=== PATIENT | male | born 1990 | race Caucasian/White ===

== ENCOUNTER 2024-10-04 06:50 | Emergency (ER) | payer BC, SELFPAY ==
[2024-10-04 06:59] VITALS: BP 151/91; PULSE 96; TEMP 37.4; O2SAT 97; BMI 18.2
--- NOTE | 2024-10-04 07:13 | XR_ITS ---
The [address] [address] Patient Name: LUIZA MORALES MRN: [id number] date: 1990 Sex: M Assigned Patient Location: ER Current Patient Location: ER Accession/Order Number: [id number] Exam Date: 10/04/2024 07:42 Report Date: 10/04/2024 07:56 At the request of: ERIN GEIGER Procedure: XR chest 2V EXAM: XR chest 2V HISTORY: cough COMPARISON: None. TECHNIQUE: PA and lateral views of the chest performed. FINDINGS: The trachea is midline. The heart size is normal. The cardiomediastinal silhouette and hilar shadows are normal. There is no consolidation, pleural effusion or pulmonary vascular congestion. There is no pneumothorax or acute osseous abnormality. XR/XR chest 2V IMPRESSION: There is no acute cardiopulmonary process. Electronically authenticated by: ANDREW VILLA Date: 10/04/2024 07:56
--- NOTE | 2024-10-04 07:16 | ED_ITS ---
HPI - URI/Sore Throat General Chief Complaint: Upper Respiratory Infection Stated Complaint: URI SYMPTOMS, GENERAL WEAKNESS Time Seen by Provider: 10/04/24 07:05 Source: patient Limitations: no limitations History of Present Illness HPI Narrative: Patient presents ED complaining of not feeling well. Patient states he has been feeling bad for 3 weeks. He said he maybe started to get a little bit better and then its gotten progressively worse again. He said he has upper respiratory symptoms like cough which is giving him a terrible headache and bodyaches and fevers and chills. Patient states he has been coughing up some mucus. Mert montejo's states that he was disoriented this morning and tried to leave the house without a shirt on and she just felt like he was not acting right because he has been so sick. She decided to bring him into the emergency room. She said she also was not feeling well recently but not as bad as him. She said they have tried everything [id number] but it has not been helping the cough body aches fevers or chills. Patient is alert and orient and resting in the bed. He is mildly tachycardic with a low-grade fever. Related Data Previous Rx's ?Medication ?Instructions ?Recorded albuterol sulfate 90 mcg/actuation 1 inh inhalation Q6H PRN shortness 10/04/24 aerosol inhaler of breath or wheezing #8.5 grams amoxicillin 875 mg-potassium 1 tab PO BID #14 tabs 10/04/24 clavulanate 125 mg tablet hydrocodone-homatropine 5 mg-1.5 5 ml PO Q6H PRN cough #60 mL 10/04/24 mg/5 mL (5 mL) oral syrup (Hycodan) methylprednisolone 4 mg tablets in 4 mg PO DAILY #21 ea 10/04/24 a dose pack (Medrol (David)) Allergies Allergy/AdvReac Type Severity Reaction Status Date / Time No Known Drug Allergies Allergy Verified 10/04/24 06:59 Review of Systems ROS Status of ROS 10 or more systems reviewed and unremark able except as noted in history and below PFSH PFSH Social History Little interest or pleasure in doing things: not at all Feeling down, depressed, or hopeless: not at all Exam Narrative Exam Narrative: Time Seen: [] Vital Signs: [Per nurse's notes.] General: [Alert] Skin: [Warm, dry, no rash.] Head: [Normocephalic, atraumatic.] Neck: [Supple, trachea midline.] Eye: [Pupils are equal, round and reactive to light, extraocular movements are intact, normal conjunctiva.] Ears, nose, mouth and throat: oral mucosa moist. Cardiovascular: [Regular rate and rhythm, no murmur.] Respiratory: [Mild wheezing and rhonchi bilateral bases worse on the right lower lobe Chest wall: [No tenderness, no deformity.] Gastrointestinal: [Soft, nontender, non distended, normal bowel sounds.] MSK: 5 out of 5 muscle strength x 4 extremities no calf pain or edema Lymphatics: [No lymphadenopathy.] Psychiatric: [Cooperative, appropriate mood & affect.] Neurological: [Alert and oriented to person, place, time, and situation, no focal neurological deficit observed.] Constitutional Vital Signs, click to edit/add: Last Vital Signs Temp 99.3 F 10/04/24 06:59 Pulse 96 H 10/04/24 06:59 Resp 19 10/04/24 06:59 BP 151/91 H 10/04/24 06:59 Pulse Ox 96 10/04/24 07:33 O2 Del Method Room Air 10/04/24 07:33 Course Vital Signs Vital signs: Vital Signs Temperature 99.3 F 10/04/24 06:59 Pulse Rate 96 H 10/04/24 06:59 Respiratory Rate 19 10/04/24 06:59 Blood Pressure 151/91 H 10/04/24 06:59 Pulse Oximetry 97 10/04/24 06:59 Temperature 99.3 F 10/04/24 06:59 Pulse Rate 96 H 10/04/24 06:59 Respiratory Rate 19 10/04/24 06:59 Blood Pressure 151/91 H 10/04/24 06:59 Pulse Oximetry 96 10/04/24 07:33 Oxygen Delivery Method Room Air 10/04/24 07:33 MDM - URI/Sore Throat MDM Narrative Medical decision making narrative: Patient's checks x-ray shows viral inflammation. Patient has been sick for 3 weeks also complaining of facial pressure and headache. Possibly sinusitis. Patient had negative test for flu COVID and RSV. Patient will be sent home with antibiotics, cough medication steroids and an albuterol inhaler for the wheezing. Patient was written a slip off work. Return to ED if worsening symptoms otherwise follow-up with family doctor. Patient is feeling better after fluids and Toradol. Patient is stable for discharge home. Differential Diagnosis Differential diagnosis: Likely upper respiratory infection, sinusitis, viral infection, bronchitis and influenza Lab Data Attestation: I reviewed the patient's lab results. Labs: Lab Results 10/04/24 10/04/24 Range/Units 07:25 07:28 WBC 5.9 (4.0-11.0) 10^3/uL RBC 4.95 (4.70-6.10) 10^6/uL Hgb 15.1 (14.0-18.0) g/dL Hct 44.6 (42.0-54.0) % MCV 90.1 (80.0-94.0) fL MCH 30.5 (25.9-34.0) pg MCHC 33.9 (29.9-35.2) g/dL RDW 11.9 (11.0-15.0) % Plt Count 233 (150-450) 10^3/uL MPV 11.0 (9.5-13.5) fL Neut % (Auto) 82.9 H (43.0-75.0) % Lymph % (Auto) 5.9 L (20.5-60.0) % [place] % (Auto) 8.8 (1.7-12.0) % Eos % (Auto) 1.5 (0.9-7.0) % Baso % (Auto) 0.7 (0.2-2.0) % Neut # (Auto) 4.9 (1.4-6.5) 10^3/uL Lymph # (Auto) 0.4 L (1.2-3.8) 10^3/uL [place] # (Auto) 0.5 (0.3-0.8) 10^3/uL Eos # (Auto) 0.1 (0.0-0.7) 10^3/uL Baso # (Auto) 0.0 (0.0-0.1) 10^3/uL Abs Immat Gran (auto) 0.01 (0.00-0.03) 10^3/uL Imm/Tot Granulo (auto) 0.2 (0.0-0.5) % Sodium 139 (136-145) mmol/L Potassium 4.0 (3.5-5.1) mmol/L Chloride 104 (98-107) mmol/L Carbon Dioxide 27.5 (21.0-32.0) mmol/L Anion Gap 11.5 BUN 15.0 (7.0-18.0) mg/dL Creatinine 1.13 (0.70-1.30) mg/dL Est GFR ( Amer) >60 (>=60 mL/min/1.73m^2) Est GFR (Non-Af Amer) >60 (>=60 mL/min/1.73m^2) BUN/Creatinine Ratio 13.3 Glucose 103 (74-106) mg/dL Calcium 8.6 (8.5-10.1) mg/dL Total Bilirubin 1.1 H (0.2-1.0) mg/dL AST 15 (15-37) U/L ALT 33 (16-63) U/L Alkaline Phosphatase 60 (46-116) U/L Total Protein 7.4 (6.4-8.2) g/dL Albumin 3.9 (3.4-5.0) g/dL Globulin 3.5 g/dL Albumin/Globulin Ratio 1.1 Influenza Type A Ag Negative Influenza Type B Ag Negative RSV Antigen Not detected (NOT DETECTE) SARS-CoV-2 Ag (CV2AG) Negative (NEGATIVE) Imaging Data Chest x-ray: Radiologist's impression: ITS Impressions Chest X-Ray 10/04/24 07:13 IMPRESSION: There is no acute cardiopulmonary process. Electronically authenticated by: ANDREW VILLA Date: 10/04/2024 07:56 Discharge Plan Discharge Chief Complaint: Upper Respiratory Infection Clinical Impression: Upper respiratory infection, Sinusitis Patient Disposition: Home, Self-Care Time of Disposition Decision: 08:18 Condition: Good Mode of Transportation: Private Vehicle Prescriptions / Home Meds: New hydrocodone-homatropine [Hycodan] 5-1.5 mg/5 mL (5 mL) syrup 5 ml PO Q6H PRN (Reason: cough) Qty: 60 0RF amoxicillin-pot clavulanate 875-125 mg tablet 1 tab PO BID Qty: 14 0RF albuterol sulfate 90 mcg/actuation HFA aerosol inhaler 1 inh inhalation Q6H PRN (Reason: shortness of breath or wheezing) Qty: 8.5 0RF methylprednisolone [Medrol (David)] 4 mg tablets,dose pack 4 mg PO DAILY Qty: 21 0RF Rx Instructions: disp one david, use as directed Print Language: Indonesian Instructions: Sinusitis (ED), Upper Respiratory Infection (ED) Referrals: Physician,Non-Staff, MD [Primary Care Provider] - 1 week
[2024-10-04 07:33] VITALS: O2SAT 96
[2024-10-04] MEDS: 0.9 % SODIUM CHLORIDE 1,000 ML 1000 ML IV (07:40)
[2024-10-04] MEDS: KETOROLAC TROMETHAMINE 30 MG/ML VIAL IVP (07:40)
[2024-10-04 07:44] LABS: Basophils Percent Auto 0.7 % (0.2-2.0); Eosinophils Absolute Auto 0.1 10^3/uL (0.0-0.7); Eosinophils Percent Auto 1.5 % (0.9-7.0); Hematocrit 44.6 % (42.0-54.0); Hemoglobin 15.1 g/dL (14.0-18.0); Immature Granulocytes Abs Auto 0.01 10^3/uL (0.00-0.03); Immature Granulocytes Pct Auto 0.2 % (0.0-0.5); Lymphocytes Absolute Auto 0.4 10^3/uL (1.2-3.8); Lymphocytes Percent Auto 5.9 % (20.5-60.0); Mean Corpuscular HGB Conc 33.9 g/dL (29.9-35.2); Mean Corpuscular Hemoglobin 30.5 pg (25.9-34.0); Mean Corpuscular Volume 90.1 fL (80.0-94.0); Monocytes Absolute Auto 0.5 10^3/uL (0.3-0.8); Monocytes Percent Auto 8.8 % (1.7-12.0); Neutrophils Absolute Auto 4.9 10^3/uL (1.4-6.5); Neutrophils Percent Auto 82.9 % (43.0-75.0); Platelet Count 233 10^3/uL (150-450); Red Blood Count 4.95 10^6/uL (4.70-6.10); Red Cell Distribution Width 11.9 % (11.0-15.0); White Blood Count 5.9 10^3/uL (4.0-11.0)
[2024-10-04 07:52] LABS: Alanine Aminotransferase 33 U/L (16-63); Albumin Globulin Ratio 1.1; Albumin Level 3.9 g/dL (3.4-5.0); Alkaline Phosphatase 60 U/L (46-116); Anion Gap 11.5; Aspartate Amino Transferase 15 U/L (15-37); BUN Creatinine Ratio 13.3; Bilirubin Total 1.1 mg/dL (0.2-1.0); Calcium 8.6 mg/dL (8.5-10.1); Carbon Dioxide 27.5 mmol/L (21.0-32.0); Chloride 104 mmol/L (98-107); Estimated GFR (African America >60 (>=60 mL/min/1.73m^2); Estimated GFR (Non-African Ame >60 (>=60 mL/min/1.73m^2); Globulin 3.5 g/dL; Glucose 103 mg/dL (74-106); Sodium 139 mmol/L (136-145); Total Protein 7.4 g/dL (6.4-8.2)
[2024-10-04 07:58] LABS: Influenza Virus A Antigen Negative; Influenza Virus B Antigen Negative; Internal Control Within Normal Limits; Respiratory Syncytial Virus Not Detected (NOT DETECTE); SARS-CoV-2 Ag NEGATIVE (NEGATIVE)
[2024-10-04 09:30] VITALS: BP 138/89; PULSE 84; O2SAT 98
== END 2024-10-04 09:33 | disposition home or self-care (01) ==
PROVIDERS: Emergency Provider Emergency Medicine
DX: J06.9 Acute upper respiratory infection, unspecified (principal); J32.9 Chronic sinusitis, unspecified; R50.9 Fever, unspecified
CPT/HCPCS: 36415; 71046; 80053; 85025; 87420; 87804; 87811; 96374; 99284; J1885